=== PATIENT | male | born 1970 | race Caucasian/White ===

== ENCOUNTER 2016-05-19 11:09 | Inpatient (IN) ==
[2016-05-19] MEDS ORDERED: ZOFRAN IV ONE (11:55)
[2016-05-19] MEDS ORDERED: NS 1,000 ML IV ONE (11:55)
[2016-05-19] MEDS ORDERED: VANCOMYCIN 1 GM/NS 250 ML IV ONE ×2 (11:58→17:00)
[2016-05-19] MEDS ORDERED: ZOSYN 3.375 GM/NS 50 ML IV ONE (11:58)
--- NOTE | 2016-05-19 12:19 | PROVIDER DOCUMENTATION ---
HPI-Rash/Wound/ReCheck - General Source: patient, family - History of Present Illness-Dermatology Location: reports: torso (back) Quality: reports: painful Severity: reports: moderate Onset/Duration: reports: other (see hpi) Timing: reports: still present, constant, getting worse. denies: improving Context/Associated Symptoms: reports: abscess, edema. denies: fever Identifiable cause?: No Exposure: reports: unknown cause Similar Symptoms Previously?: Yes Recently seen or treated by another doctor?: Yes - General Chief Complaint: Abscess Stated Complaint: POSS ABSCESS Time Seen by Provider: 05/19/16 11:46 Allergies/Adverse Reactions: Allergies Allergy/AdvReac Type Severity Reaction Status Date / Time No Known Allergies Allergy Verified 05/19/16 13:10 Home Medications: Home Medication List Medication Instructions Recorded Confirmed Last Taken Type No Home Medications 05/19/16 05/19/16 Unknown History - History of Present Illness-Dermatology Nature of Presenting Problem: 45 year old WM presents with c/o of a wound to his left central back region. pt reports he developed starting with a pimple and getting worse. pt reports he was evaluated while traveling in [place] and told to use peroxide twice a day and change the dressing. pt reports it has been getting progressively larger over time with increased drainage. pt has been taking his fathers percocet and a friends cipro without improvement. reports associated nausea, denies fever/ chills/vomiting or diarrhea. (Oma Hua) Review of Systems - Adult - REVIEW OF SYSTEMS - ADULT Constitutional: reports: no symptoms reported. denies: chills, fever, fatique Eyes: reports: no symptoms reported. denies: discharge, blurred vision, double vision Ears, Nose, Mouth & Throat: reports: no symptoms reported. denies: ear discharge, ear pain, nose pain, loose teeth, throat pain, throat swelling Cardiovascular: reports: no symptoms reported. denies: chest pain, palpitations , syncope Respiratory: reports: no symptoms reported. denies: chronic cough, cough, shortness of breath, wheezing Gastrointestinal: reports: no symptoms reported. denies: abdominal pain, diarrhea, nausea, vomiting Genitourinary: reports: no symptoms reported. denies: dysuria, hematuria, urgency Musculoskeletal: reports: see HPI, back pain. denies: bone pain, joint pain, joint swelling, neck pain Integumentary: reports: see HPI, skin sores/ulcer. denies: hives, hair loss, itching, mole changes, nail changes, rash, skin thickening Neurological: reports: no symptoms reported. denies: ataxia, dizziness/vertigo , headache/migraines, numbness, paresthesia Psychiatric: reports: no symptoms reported Endocrine: reports: no symptoms reported Hematologic/Lymphatic: reports: no symptoms reported Allergic/Immunologic: reports: no symptoms reported All Other Systems: Reviewed and Negative Past History - Adult - PAST MEDICAL HISTORY-ADULT Review of Records: reports: Old Records Reviewed, Nursing Assessment Review, Medications Reviewed, Social history reviewed & non-contributory. Major Childhood Illnesses: reports: denies history Cardiovascular: reports: denies history Respiratory: reports: denies history Gastrointestinal: reports: denies history Obstetrical/Gynecological: reports: denies history Genitourinary: reports: denies history Musculoskeletal: reports: denies history Neurological: reports: denies history Endocrine/Immune: reports: denies history Other Conditions: reports: denies history - FAMILY HISTORY Family History: reviewed, not pertinent - SOCIAL HISTORY Smoking: denies, non-smoker Substance Use: none/never Alcohol Use Frequency: never Physical Exam-General - PHYSICAL EXAM-ADULT Initial Vital Signs Reviewed: Yes - CONSTITUTIONAL General Appearance: appears well, alert, no apparent distress. negative: mild distress, moderate distress, severe distress, lethargic, slow to respond, obtunded, combative - EYES Eyes: pink conjunctivae. negative: conjuctival exudate, pale conjunctivae, photophobia, sclera injected, scleral icterus, subconjunctival hemorrhage - HEAD, EARS, NOSE, MOUTH & THROAT HENMT: normocephalic/atraumatic, moist mucous membranes, normal ENT inspection - NECK Neck: non-tender, full range of motion, supple, normal inspection. negative: C- spine tenderness, limited range of motion, tender lateral, tender midline - RESPIRATORY Respiratory: chest non-tender, lungs clear, normal breath sounds, no pleuratic chest pain, no respiratory distress, no accessory muscle use. negative: respiratory distress, decreased breath sounds, accessory muscle use, crackles, rales, rhonchi, stridor, wheezing - CARDIOVASCULAR Cardiovascular: normal peripheral pulses, regular rate, rhythm, no edema, no gallop, no JVD, no murmur - CHEST (BREASTS) Chest/Breast: deferred. negative: tenderness - GASTROINTESTINAL (ABDOMEN) Abdominal Exam: normal bowel sounds, non tender, soft - GENITOURINARY Male Genitalia: deferred Rectal Exam: deferred Hemoccult Exam: deferred - LYMPHATIC Lymphatic: no adenopathy. negative: cervical node tenderness, enlargement, striations, streaking - MUSCULOSKELETAL Back Exam: no CVA tenderness, no vertebral tenderness, swelling (12cm by 12cm abscess with green/yellow purulent drainage, surrounding erythema/tenderness). negative: normal inspection, CVA tenderness, decreased range of motion, ecchymosis, kyphosis, lordosis, muscle spasm, scoliosis, vertebral tenderness Extremity: normal range of motion, non-tender, normal gait, normal inspection, no pedal edema, no calf tenderness, normal capillary refill. negative: deformity, erythema, slow capillary refill, swelling Peripheral Pulses: radial (R): 3+, radial (L): 3+, dorsalis-pedis (R): 3+, dorsalis-pedis (L): 3+ - SKIN Integumentary: erythema (see back exam), swelling, tenderness - NEUROLOGIC Neurologic: grossly normal, no motor/sensory deficits - PSYCHIATRIC Psych/Mental Status: normal mood/affect, normal thought content, normal thought process, oriented x 3 Progress - CONSULTS/PCP/HOSPITALIST Notification #1 *Consult/PCP/Hospitalist*: Dr. Leonardo Cornejo Time Discussed: 14:13 Consult Disposition: other (discussed/reviewed case with Dr. Patterson and he would like general) #2 Consult: Dr. Taylor Time Discussed: 14:18 Consult Disposition: Will see in ED (and evaluate for admission vs consult.) - PLAN OF CARE/RESULTS Progress/Plan/Lab Results: Note - Pt interviewed and examined by me. He has a large draining abscess on the upper thoracic area at the midline. He also has a 2/6 systolic murmur. Agree with admission and likely echo to r/o endocarditis. (Gerson Ugalde) Laboratory Tests 05/19/16 05/19/16 05/19/16 12:23 12:23 12:23 WBC 18.10 H RBC 4.76 Hgb 14.5 Hct 42.8 MCV 89.9 MCH 30.5 MCHC 33.9 RDW Std Deviation 13.2 Plt Count 405 H MPV 10.3 Immature Gran % (Auto) 1.9 H Neut % (Auto) 76.2 H Lymph % (Auto) 10.7 L [place] % (Auto) 9.2 Eos % (Auto) 1.5 Baso % (Auto) 0.5 Immature Gran # (Auto) 0.34 H Neut # (Auto) 13.79 H Lymph # (Auto) 1.94 [place] # (Auto) 1.67 H Eos # (Auto) 0.27 Baso # (Auto) 0.09 Segmented Neutrophils 78 H Band Neutrophils 4 H Lymphocytes 12 L Monocytes 4 Atypical Lymphocytes 2.0 Large Platelets OCCASIONAL Polychromasia OCCASIONAL Sodium 140 Potassium 3.9 Chloride 98 Carbon Dioxide 27 Anion Gap 15 BUN 7 L Creatinine 0.8 Estimated GFR/1.73 m2 > 60 BUN/Creatinine Ratio 9 Glucose 104 Calculated Osmolality 278 Calcium 9.0 Total Bilirubin 0.58 AST 37 H ALT 68 H Alkaline Phosphatase 142 H Total Protein 7.5 Albumin 3.3 L Globulin 4.2 Albumin/Globulin Ratio 0.8 Plasma Lactate 2.0 Urine Source Urine Color Urine Turbidity Urine pH Ur Specific [place] Urine Protein Ur Glucose (Stick) Ur Ketones (Stick) Urine Blood Urine Nitrite Urine Bilirubin Urobilinogen Dipstick Urine Leukocytes Urine WBC (Auto) Urine RBC (Auto) U Epithel Cells (Auto) Urine Bacteria (Auto) 05/19/16 12:50 WBC RBC Hgb Hct MCV MCH MCHC RDW Std Deviation Plt Count MPV Immature Gran % (Auto) Neut % (Auto) Lymph % (Auto) [place] % (Auto) Eos % (Auto) Baso % (Auto) Immature Gran # (Auto) Neut # (Auto) Lymph # (Auto) [place] # (Auto) Eos # (Auto) Baso # (Auto) Segmented Neutrophils Band Neutrophils Lymphocytes Monocytes Atypical Lymphocytes Large Platelets Polychromasia Sodium Potassium Chloride Carbon Dioxide Anion Gap BUN Creatinine Estimated GFR/1.73 m2 BUN/Creatinine Ratio Glucose Calculated Osmolality Calcium Total Bilirubin AST ALT Alkaline Phosphatase Total Protein Albumin Globulin Albumin/Globulin Ratio Plasma Lactate Urine Source CLEAN CATCH Urine Color YELLOW Urine Turbidity CLEAR Urine pH 6.0 Ur Specific [place] 1.028 Urine Protein 30 A Ur Glucose (Stick) NEGATIVE Ur Ketones (Stick) 10 A Urine Blood TRACE A Urine Nitrite NEGATIVE Urine Bilirubin SMALL A Urobilinogen Dipstick 4 A Urine Leukocytes NEGATIVE Urine WBC (Auto) <10 Urine RBC (Auto) <10 U Epithel Cells (Auto) <10 Urine Bacteria (Auto) NEGATIVE Orders Category Date Time Status Saline Loc NOW Care 05/19/16 11:54 Active CHEST-2 VIEWS [RAD] Stat Exams 05/19/16 11:54 Completed BLOOD CULTURE [BLDCUL] Stat Lab 05/19/16 12:38 Received CBC WITH DIFF [HEME] Stat Lab 05/19/16 12:23 Completed COMPREHENSIVE METABOLIC PANEL [CHEM] Stat Lab 05/19/16 12:23 Completed LACTATE, PLASMA [CHEM] Stat Lab 05/19/16 12:23 Completed ROUTINE CULTURE [RM] Routine Lab 05/19/16 13:09 Ordered UA NIMS W/REFLEX CULT [URINALYSIS] Stat Lab 05/19/16 12:50 Completed 0.9% Sodium Chloride Inj [Ns] 1,000 ml Med 05/19/16 11:55 Discontinued IV 999 mls/hr Ondansetron [Zofran] Med 05/19/16 11:55 Discontinued 4 mg IV NOW ONE Piperacil/Tazobact 3.375 gm/Ns [Zosyn 3.375 gm/Ns] 50 Med 05/19/16 11:58 Discontinued ml IV NOW Vancomycin 1 gm/Ns 250 ml Med 05/19/16 11:58 Discontinued IV NOW EKG [EKG] Stat Ther 05/19/16 11:55 Ordered Vital Signs - 24 hr 05/19/16 11:18 Temperature 98.3 F Pulse Rate 93 H Respiratory 20 Rate Blood Pressure 159/75 O2 Sat by Pulse 100 Oximetry Review[address] labs with Dr. Ugalde who came to the bedside for evaluation. (Oma Hua) Departure - Departure Time of Disposition Order: 14:18 Certified Medical Emergency: Emergent - Departure DIAGNOSIS: Abscess Disposition: ADMITTED INPATIENT 09 Condition: Stable Referrals: None,PCP [Primary Care Provider] - Attestation - Physician/ JUSTIN Attestation Patient care was provided by Advanced Practice Provider:: Yes Advanced Practice Provider:: Oma Hua Advanced Practice Provider documentation review:: The Mid-level provider documentation, treatment plan and medical decision making was reviewed by the physician who agrees with all treatment and medical decision making by the MLP. The physician spent face to face time with patient:: Yes (@[id number]) Physician Attestation
--- NOTE | 2016-05-19 12:29 | Diag Imaging Result Document ---
PROCEDURE NAME: CHEST-2 VIEWS - 05/19/2016 TWO VIEWS OF THE CHEST: FINDINGS: There are scattered granulomata present bilaterally. There is no evidence of acute cardiac or pulmonary disease. No previous studies are available for comparison. IMPRESSION: No acute disease.
[2016-05-19 13:13] LABS: URINE CULTURE NEEDED? NO; URINE MICRO REVIEW NEEDED? NO; URINE SOURCE CLEAN CATCH
[2016-05-19 13:14] LABS: AGAP 15; ALBUMIN 3.3 g/dL (3.5-5.0); ALKALINE PHOSPHATASE 142 U/L (32-122); BUN 7 mg/dL (8-22); CHLORIDE 98 mmol/L (98-107); COSMO 278; GOT 37 U/L (10-34); GPT 68 U/L (10-44); POTASSIUM 3.9 mmol/L (3.5-5.1); SODIUM 140 mmol/L (136-145); TCO2 27 mmol/L (25-35); TOTAL BILIRUBIN 0.58 mg/dL (0.20-1.00); TOTAL PROTEIN 7.5 g/dL (6.3-8.3)
[2016-05-19 13:26] LABS: BILIRUBIN URINE SMALL (NEGATIVE); BLOOD URINE TRACE (NEGATIVE); COLOR YELLOW; GLUCOSE URINE NEGATIVE (NEGATIVE); LEUKOCYTES URINE NEGATIVE (NEGATIVE); NITRITE URINE NEGATIVE (NEGATIVE); PROTEIN URINE 30 mg/dL (NEGATIVE); SP GRAVITY URINE 1.028; TURBIDITY URINE CLEAR (CLEAR); UR EPITHELIAL CELLS <10 /HPF (<10); URINE BACTERIA NEGATIVE /HPF; URINE RBC <10 /HPF (<10); URINE WBC <10 /HPF (<10); UROBILINOGEN URINE 4 mg/dL (NORMAL)
--- NOTE | 2016-05-19 13:39 | ED EKG INTERP ---
EKG Interpretation - EKG Time of EKG reading by physician:: 12:22 EKG Read and Signed by:: Gerson Ugalde EKG Interpretation (*Must complete 3 of following elements*): Abnormal Rate: 90 Rhythm: NSR [place]: normal QRS: RBB MS Interval: normal ST Wave: non-specific ST changes Attestation - Scribe Verification/Attestation Scribe:: Kiran Scott Acting as Scribe for:: Gerson Ugalde Scribe documention review:: This chart was documented by a scribe and accurately reflects the service the provider performed and the decisions made by the provider. Physician Attestation - Physician Attestation I, the provider, attest to the following statement:: Gerson Ugalde Physician documentation Attestation:: This documentation recorded by the scribe accurately reflects the service I personally performed and the decisions made by me.
[2016-05-19 13:58] LABS: BASO% 0.5 % (0.0-0.8); EOS# 0.27 X1000 (0.0-0.7); EOS% 1.5 % (0.0-10.0); HEMATOCRIT 42.8 % (42.0-52.0); HEMOGLOBIN 14.5 g/dL (14.0-18.0); IMM GRAN# 0.34 X1000 (0.0-0.04); IMM GRAN% 1.9 % (0.0-0.5); LYMPH# 1.94 X1000 (1.2-3.4); LYMPH% 10.7 % (20.5-51.1); MANUAL DIFF NEEDED? YES; MCH 30.5 PG (27-31); MCHC 33.9 g/dL (33-37); MCV 89.9 FL (81-99); MONO# 1.67 X1000 (0.11-0.59); MONO% 9.2 % (1.7-9.3); MPV 10.3 FL (7.4-10.4); NEUT% 76.2 % (42.2-75.2); PLT 405 X1000 (130-400); RBC 4.76 XMIL (4.7-6.1)
[2016-05-19 14:02] LABS: BANDS 4 % (0-1); LARGE PLATELETS OCCASIONAL; LYMPHS 12 % (21-51); MONO 4 % (1-9)
[2016-05-19 14:03] LABS: POLYCHROM OCCASIONAL
[2016-05-19] MEDS ORDERED: VANCOMYCIN IV PER PHARMACY MISC SCH (16:00)
--- NOTE | 2016-05-19 16:21 | HISTORY AND PHYSICAL ---
ADMITTING DIAGNOSIS: Back abscess. HISTORY OF PRESENT ILLNESS: This is a 45-year-old male presenting with a wound to his central back region that started a week ago. It started as a pimple and has progressively been getting worse. He was evaluated while in [place] and told to put peroxide on the wound twice a day and change the dressing. It had potentially been increasing in size and it started draining the last couple of days, foul drainage. He was seen in the emergency department, had the area cultured, and started on antibiotics. I was asked to evaluate the area given the large size. PAST MEDICAL HISTORY: None. PAST SURGICAL HISTORY: None reported. SOCIAL HISTORY: Denies alcohol tobacco or illicit drugs. FAMILY HISTORY: Reviewed with the patient but noncontributory. HOME MEDICATIONS: None. ALLERGIES: None. REVIEW OF SYSTEMS: A full 10 point review of systems obtained. Negative except as specified in HPI. PHYSICAL EXAMINATION: VITAL SIGNS: Patient is currently afebrile, temperature 98.3 degrees, pulse is 93, respiratory rate 20 and nonlabored, blood pressure 159/75, O2 saturation 100% on room air. GENERAL: No acute distress. Alert, interactive, male, looks stated age. HEENT: Normocephalic, atraumatic. Pupils equal, round, reactive to light. Mucous membranes moist. Oropharynx benign. NECK: Supple. Trachea midline. CARDIOVASCULAR: Regular rate and rhythm. LUNGS: Grossly clear. ABDOMEN: Soft, nontender, nondistended. EXTREMITIES: Moves all extremities well. SKIN: Large area of erythema and induration noted to the back. The central part between the shoulder blades there is an area necrotic tissue and slough consistent with an abscess. This areas is exquisitely tender to palpation. It essentially extends over the majority of the upper aspect of his back. EXTREMITIES: Moves all extremities. NEUROLOGIC: Grossly intact. VASCULAR: All extremities perfused. LABORATORY: White blood cell count 18.1, hematocrit is 42, and platelet count 405,000. BMP reviewed. Microbiology from the wound is still pending. ASSESSMENT AND PLAN: A 45-year-old male with a large back abscess. Large back abscess. At this time the patient has been started on antibiotics and had the wound cultured. He will need debridement in the operating room. Discussed with the patient. We will schedule. All risks, benefits, and alternatives were discussed. He voiced understanding.
[2016-05-19] MEDS ORDERED: VERSED ONE (18:12)
[2016-05-19] MEDS ORDERED: CLAVE SECONDARY SET 11953 ONE (18:13)
[2016-05-19] MEDS: ZOSYN 3.375 GM/NS 50 ML IV SCH (18:30)
[2016-05-19] MEDS: DILAUDID ONE ×8 (19:08→19:48)
[2016-05-19] MEDS ORDERED: DIPRIVAN 1% ONE (19:19)
[2016-05-19] MEDS ORDERED: FENTANYL ONE (19:19)
--- NOTE | 2016-05-19 19:22 | OPERATIVE NOTE ---
PROCEDURE DATE: 05/19/2016 PREOPERATIVE DIAGNOSIS: Necrotizing soft tissue infection of the back. POSTOPERATIVE DIAGNOSIS: Necrotizing soft tissue infection of the back. PROCEDURE: 1. Incision and drainage with debridement of necrotizing soft tissue infection with skin, subcutaneous tissue, measuring 100 square cm. 2. Placement of a negative pressure wound dressing. SURGEON: Jona Taylor MD. [facility] [facility]: None. ANESTHESIA: General endotracheal. INTRAOPERATIVE FINDINGS: Area of the abscess and infection measured 10 cm x 10 cm x 1 cm. COMPLICATIONS: None at time of this dictation. ESTIMATED BLOOD LOSS: 50 mL. SPECIMENS REMOVED: Tissue. BRIEF HISTORY: The patient is a 45-year-old male presenting with a necrotizing soft tissue infection to his back. He was started on antibiotics and cultured in the ER. It was felt the patient would benefit from debridement and drainage in the operating room. The risks, benefits, and alternatives were discussed. He voiced understanding and wished to proceed with procedure. DESCRIPTION OF PROCEDURE: After informed consent was obtained, patient brought to the operative theatre, placed on the operative table, placed supine position. General endotracheal anesthesia was then performed without complication. The patient was transitioned to prone. After a formal time-out we prepped and draped the area in a sterile fashion. After the time-out, we made an incision through the necrotic tissue. I debrided back everything sharply to healthy tissue. The area once debrided went down to muscle. There were multiple tracking cavities noted which we bluntly dissected and encountered purulence which we drained and irrigated thoroughly. The total area after debridement and the undermining was 10 cm x 10 cm x 1 cm deep. Given this wound size we elected to place a negative pressure wound dressing. We did this with a black sponge in a standard fashion, connected to suction with good results. The patient tolerated the procedure well and was transferred to the recovery room stable condition. Postoperatively, we will keep the patient on a wound VAC and on antibiotics and continue local wound care.
[2016-05-19] MEDS ORDERED: NS 1,000 ML ONE (19:25)
[2016-05-19] MEDS ORDERED: NORCO-10 PO PRN (20:09)
[2016-05-19] MEDS: NORCO-10 PO PRN (20:33)
[2016-05-19] MEDS: PERIDEX MT SCH (20:34)
[2016-05-19] MEDS ORDERED: NS 1,000 ML IV SCH (21:00)
[2016-05-20] MEDS: NORCO-10 PO PRN ×6 (00:32→21:40)
[2016-05-20] MEDS: ZOSYN 3.375 GM/NS 50 ML IV SCH ×4 (00:32→23:25)
[2016-05-20] MEDS: NS 1,000 ML IV SCH ×4 (00:32→23:27)
--- NOTE | 2016-05-20 05:42 | EKG Report ---
Test Performed on : 05/19/2016 12:22:57 PM Test Reason : admission Blood Pressure : / mmHG Vent. Rate : 090 BPM Atrial Rate : 090 BPM P-R Int : 130 ms QRS Dur : 134 ms QT Int : 484 ms P-R-T Axes : 072 033 047 degrees QTc Int : 592 ms Normal sinus rhythm. Right bundle branch block T wave abnormality, consider inferior ischemia Abnormal ECG No previous ECGs available Unconfirmed Result
[2016-05-20] MEDS: VANCOMYCIN 2,000 MG in NS 500 ML IV SCH ×2 (05:47→16:56)
[2016-05-20 06:23] LABS: BASO% 0.2 % (0.0-0.8); EOS# 0.13 X1000 (0.0-0.7); EOS% 0.8 % (0.0-10.0); HEMOGLOBIN 12.7 g/dL (14.0-18.0); IMM GRAN# 0.14 X1000 (0.0-0.04); IMM GRAN% 0.8 % (0.0-0.5); LYMPH# 1.94 X1000 (1.2-3.4); LYMPH% 11.7 % (20.5-51.1); MANUAL DIFF NEEDED? YES; MCH 30.7 PG (27-31); MCHC 33.4 g/dL (33-37); MCV 91.8 FL (81-99); MONO# 0.79 X1000 (0.11-0.59); MONO% 4.8 % (1.7-9.3); MPV 10.2 FL (7.4-10.4); NEUT% 81.7 % (42.2-75.2); PLT 335 X1000 (130-400); RBC 4.14 XMIL (4.7-6.1)
--- NOTE | 2016-05-20 06:37 | PROGRESS NOTE ---
DATE: 05/20/2016 SUBJECTIVE: Patient doing well. Reports less pain. OBJECTIVE: Vital Signs: Patient is afebrile. His vital signs are stable. General: No acute distress. Skin: Wound VAC in place. Cardiovascular: Regular rate and rhythm. Lungs: Grossly clear. Abdomen: Soft, nontender, nondistended. LABORATORIES: Currently pending from this morning. Microbiology pending from the wound but positive gram-positive cocci in the blood. ASSESSMENT/PLAN: A 45-year-old male status post incision and drainage, debridement of back abscess with placement of negative pressure wound dressing now with bacteremia. 1. Wound to the back. At this time, we will continue wound vacuum-assisted closure. We will have Wound Care see the patient. We will recheck labs this morning. 2. Bacteremia. At this time, I have consulted with Dr. Cifuentes with Infectious Disease. Patient is on vancomycin and Zosyn. We will continue current therapy.
[2016-05-20 06:48] LABS: AGAP 9; BUN 7 mg/dL (8-22); CALCIUM 8.5 mg/dL (8.8-10.2); CHLORIDE 102 mmol/L (98-107); COSMO 276; SODIUM 138 mmol/L (136-145); TCO2 27 mmol/L (25-35)
[2016-05-20 07:13] LABS: BANDS 2 % (0-1); LYMPHS 12 % (21-51); MONO 4 % (1-9)
--- NOTE | 2016-05-20 08:05 | CONSULTATION ---
DATE OF CONSULTATION: 05/20/2016 HISTORY OF PRESENT ILLNESS: The patient is status post incision and drainage of a necrotizing back infection, which included abscesses. RECOMMENDATIONS: The patient has undergone incision and drainage of a necrotizing back infection with abscess formation. I would suggest continuing the current antibiotics pending culture results. LABORATORY AND X-RAY: The patient's CBC showed the white count went from 18, 000 to 16,550 this morning; hemoglobin is 12.7, platelet count is 335,000. Creatinine 0.8. GFR is greater than 60. One out of 2 blood cultures is growing gram-positive cocci. The cultures taken from the back wounds are still pending. DISCUSSION: The patient states that a couple weeks ago he started developing some pain and what he thought was a pimple in his back. The area became more and more painful and erythematous and indurated. The patient was then admitted to the hospital, and Dr. Taylor operated on the patient yesterday doing an incision and drainage of a necrotizing back wound infection and also had drainage of abscesses. I cannot really think of a comorbidity for this patient that he has that would predispose him to getting a back abscess, which has gotten quite large. REVIEW OF SYSTEMS: Eyes and Ears: The patient denies difficulty hearing or seeing. Neck: No stiffness. Respiratory: No cough or shortness of breath. Gastrointestinal: No nausea, vomiting, or diarrhea. Genitourinary: No dysuria or flank pain. Neurologic: The patient is alert. He can move his extremities. There is no tremor. PLAN: The plan will be to continue treating the Mr. Dumont' abscesses pending culture results. A VAC is in place. PHYSICAL EXAMINATION: Vital Signs: Temperature is 98 degrees, pulse 52, respirations 14, blood pressure 119/53. General: This is a fairly healthy-appearing, middle-aged male who is in no acute distress at this time. Lungs: Clear to auscultation. Cardiovascular: Regular heart rate. Head, Eyes, Ears, Nose, and Throat: He can hear my spoken words and see near objects. The patient does have some caries in his teeth. Overall, he has poor dental hygiene. Neck: No meningismus. Neurologic: The patient is awake. He can move his extremities. There is no tremor. His memory as regarding his medical history seemed to be intact. Back- VAC in place, no erythema or swelling. MEDICAL DISEASES: Negative for diabetes mellitus and hypertension. INFECTIOUS DISEASE HISTORY: Negative for pneumonia and UTI. NEUROLOGIC HISTORY: No seizures or syncopal episodes. ENDOCRINE HISTORY: No history of diabetes or thyroid disease. FAMILY HISTORY: Every time I asked the patient about a family member, he said there was no illness. He said he is not aware of any illness in his family. SOCIAL HISTORY: [place] He does not drink or smoke. 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 He is single. ALLERGIES: He does not have any drug allergies. MEDICATIONS: The does not take any medicine regularly or have any home medication. Thank you for the consultation. CARMEN
[2016-05-20] MEDS: PERIDEX MT SCH ×2 (09:04→20:33)
[2016-05-20] MEDS ORDERED: ANESTHESIA PB SET 88 IN 5742 ONE (10:11)
[2016-05-20] MEDS ORDERED: QUELICIN (DOSE) ONE (10:11)
[2016-05-20] MEDS ORDERED: XYLOCAINE-MPF 2% ONE (10:11)
[2016-05-20] MEDS ORDERED: LR 1,000 ML ONE (10:11)
[2016-05-20] MEDS ORDERED: EXTENSION SET 32 IN 4522 ONE (10:11)
[2016-05-20] MEDS ORDERED: ZOFRAN ONE (10:11)
[2016-05-20] MEDS ORDERED: DECADRON ONE (10:11)
[2016-05-21] MEDS: NORCO-10 PO PRN ×6 (01:53→20:25)
[2016-05-21] MEDS: ZOSYN 3.375 GM/NS 50 ML IV SCH ×4 (03:34→20:25)
[2016-05-21] MEDS: VANCOMYCIN 2,000 MG in NS 500 ML IV SCH ×2 (04:25→17:37)
[2016-05-21] MEDS: NS 1,000 ML IV SCH ×2 (05:42→14:10)
--- NOTE | 2016-05-21 06:10 | PROGRESS NOTE ---
DATE: 05/21/2016 SUBJECTIVE: Patient doing well. No major issues. He did have MRSA in his wound. He also still has gram positive cocci in his blood. OBJECTIVE: Vital Signs: Patient has been afebrile. His vital signs have been stable. General: No acute distress. Alert, interactive. Skin: Wound VAC in place on back. Cardiovascular: Regular rate and rhythm. Lungs: Grossly clear. Abdomen: Soft, nontender, nondistended. Extremities: Moves all extremities well. Neurologic: Grossly intact. Vascular: All extremities perfused. LABORATORY: White blood cell count from yesterday 16.5. New labs: New CBC ordered this morning. The remainder of his labs from yesterday were within normal limits. ASSESSMENT/PLAN: A 45-year-old male with likely Methicillin-resistant Staphylococcus aureus wound and associated bacteremia. 1. MRSA wound at this time. We will continue wound VAC. We will have wound care. Change the wound VAC at the bedside today and re-evaluate the wound. We will keep his wound VAC over the weekend and reassess on Tuesday after exchange today. My partner, Dr. Iyer, will cover over the weekend. 2. Bacteremia. At this time, likely the same species as the one in the wound. He is currently on vancomycin and Zosyn. Infectious disease is following. We will defer any changes to them as far as antibiotic duration.
--- NOTE | 2016-05-21 06:52 | PROGRESS NOTE ---
DATE: 05/21/2016 PRESENT ILLNESS: The patient is status post incision and drainage of a necrotizing back infection which included an abscess. Culture from the abscess grew methicillin-resistant Staphylococcus aureus. Blood cultures are negative. MEDICATIONS: The patient is on vancomycin and Zosyn. PHYSICAL EXAMINATION: Vital Signs: Temperature is 97.6, pulse 50, respirations 12, blood pressure 115/67. Generally, this is a fairly healthy-appearing, middle-aged male, who is in no acute distress. Lungs clear to auscultation. Cardiovascular: Heart rate is regular. Abdomen soft and nontender. Back: The upper back wound has a VAC on it. There is no surrounding erythema or swelling. LABORATORY DATA AND X-RAY: There is no new x-ray. The culture from the back grew methicillin-resistant Staphylococcus aureus. Blood cultures are negative. There is no new lab for today or new radiographic study. ASSESSMENT AND PLAN: The patient has methicillin-resistant Staphylococcus aureus back abscess along with phlegmon. I plan to continue vancomycin but discontinue Zosyn. The plan is to keep the patient over the weekend and send him home in the first of the week. From an Infectious Disease point of view, I think the patient can be sent home on oral antibiotics. Which antibiotic is to be chosen depends on how the patient's wound looks and also the susceptibilities of the organism. The patient's comorbidities include the following: The patient does not really have a comorbidity that I could find.
[2016-05-21] MEDS: PERIDEX MT SCH ×2 (08:46→20:25)
[2016-05-22] MEDS: NORCO-10 PO PRN ×6 (00:15→22:15)
[2016-05-22] MEDS: ZOSYN 3.375 GM/NS 50 ML IV SCH ×4 (04:06→22:15)
[2016-05-22] MEDS: NS 1,000 ML IV SCH ×2 (04:07→09:34)
[2016-05-22] MEDS: VANCOMYCIN 2,000 MG in NS 500 ML IV SCH ×2 (05:39→17:16)
[2016-05-22] MEDS: PERIDEX MT SCH ×2 (09:32→22:15)
--- NOTE | 2016-05-22 10:02 | PROGRESS NOTE ---
DATE: 05/22/2016 SUBJECTIVE: Arturo Dumont is a 45-year-old, white male, patient of Dr. Jona Taylor. He has developed a soft tissue infection of his back and has a wound VAC in place. He is receiving IV antibiotics, and overall he feels clinically he is improving. His heart rate is 67, blood pressure 115/82, O2 saturation 93%. He is voiding without difficulty. He is on IV vancomycin and Zosyn. He is eating a regular diet. He has been good about getting up and moving around. PLAN: We will stop any maintenance IV fluid. He will continue to get his IV antibiotics. His wound VAC is in place.
[2016-05-23] MEDS: NORCO-10 PO PRN ×6 (02:48→22:49)
[2016-05-23] MEDS: ZOSYN 3.375 GM/NS 50 ML IV SCH ×4 (02:49→21:25)
[2016-05-23] MEDS: VANCOMYCIN 2,000 MG in NS 500 ML IV SCH ×2 (06:31→18:29)
[2016-05-23] MEDS: PERIDEX MT SCH ×2 (09:41→21:25)
--- NOTE | 2016-05-23 11:17 | PROGRESS NOTE ---
DATE: 05/23/2016 Mr. Dumont is a 45-year-old white male who has an open wound involving his mid upper back that is being treated with a wound VAC. He is also on IV Zosyn and vancomycin per Dr. Taylor. His wound VAC is functioning well and otherwise he is eating a regular diet and has no other complaints. He is afebrile.
[2016-05-24] MEDS: NORCO-10 PO PRN ×4 (02:43→18:41)
[2016-05-24] MEDS: ZOSYN 3.375 GM/NS 50 ML IV SCH (03:00)
[2016-05-24] MEDS: VANCOMYCIN 2,000 MG in NS 500 ML IV SCH ×2 (04:59→16:17)
--- NOTE | 2016-05-24 06:43 | PROGRESS NOTE ---
DATE: 05/24/2016 PRESENT ILLNESS: The patient is status post incision and drainage of a necrotizing back abscess. Culture from the abscess grew methicillin-resistant Staphylococcus aureus. Patient also has 1 of 2 blood cultures positive for a viridans Streptococcus. MEDICATIONS: The patient is on vancomycin and Zosyn. PHYSICAL EXAMINATION: Vital Signs: Temperature is 98.3 degrees, pulse 56, respirations 20. Blood pressure 132/62. General: This is a fairly healthy-appearing, middle-aged male. He is in no acute distress. Lungs: Clear to auscultation. Cardiovascular: Regular heart rate. Abdomen: Soft and nontender. Back: The patient has a VAC in place. The site is not swollen or red. LAB AND X-RAY: A CBC and BMP are pending. I have also ordered 2 blood cultures today. There is no new x-ray today. ASSESSMENT AND PLAN: I plan to continue vancomycin and have discontinued Zosyn. Whether the patient's blood culture is positive and meaning that the patient has bacteremia or if it is a contaminant is hard for me to say. I think the safest thing would be to assume that it is a true bacteremia and treat it with an intravenous antibiotic for 2 weeks. The vancomycin that the patient already is on should cover the viridans Streptococcus as well as the methicillin-resistant Staphylococcus aureus abscess from the back. Therefore, I have also repeated the blood cultures. If they are sterile, I will put in a peripherally inserted central catheter. I put in a consult for [facility] to supply the patient with 2 weeks of intravenous home vancomycin. I will see the patient back then in my office after the antibiotics are completed at which time I will examine the patient. If everything looks good, I will stop the antibiotics and remove the patient's peripherally inserted central catheter. Dr. Taylor is managing the patient's wound on his back and he will order what kind of dressing or continue with the VAC. The patient does not have a comorbidity that I could establish which predisposed him to get this infection.
[2016-05-24 07:12] LABS: BASO% 0.3 % (0.0-0.8); EOS# 0.31 X1000 (0.0-0.7); EOS% 2.7 % (0.0-10.0); HEMATOCRIT 38.8 % (42.0-52.0); HEMOGLOBIN 12.8 g/dL (14.0-18.0); LYMPH% 20.9 % (20.5-51.1); MANUAL DIFF NEEDED? NO; MCH 30.3 PG (27-31); MCV 91.9 FL (81-99); MONO# 1.05 X1000 (0.11-0.59); MONO% 9.1 % (1.7-9.3); MPV 9.9 FL (7.4-10.4); PLT 335 X1000 (130-400); RBC 4.22 XMIL (4.7-6.1)
[2016-05-24] MEDS: PERIDEX MT SCH ×2 (09:32→22:17)
--- NOTE | 2016-05-24 10:02 | PROGRESS NOTE ---
DATE: 05/24/2016 SUBJECTIVE: The patient is doing well. No major issues. Wound VAC was changed on Tuesday, still working. OBJECTIVE: Vital signs: The patient is currently afebrile. His vital signs are stable. General: No acute distress. Skin: Wound VAC in place. Cardiovascular: Regular rate and rhythm. Lungs: Grossly clear. Abdomen: Soft, nontender and nondistended. DIAGNOSTIC DATA: The patient does have on microbiology Staphylococcus aureus on the wound and Streptococcus intermedius in the blood. ASSESSMENT AND PLAN: This is a 45-year-old male status post incision and drainage of back abscess with negative pressure wound dressing. At this time, the patient does have Streptococcus intermedius in his blood and Staphylococcus aureus in his wound. At this time, he is on antibiotics. We will defer to Infectious Disease about duration of antibiotics on him. We will have Wound Care change his dressing today and potentially go home soon.
--- NOTE | 2016-05-24 16:06 | PROGRESS NOTE ---
DATE: 05/24/2016 There has been a slight change in the patient's antimicrobial therapy. Instead of doing the vancomycin at home, the patient will be given daptomycin 500 mg IV daily at the Outpatient Clinic for 2 weeks. I have also ordered that the following labs be done: CBC, creatinine, and CPK to be drawn every Tuesday for 2 weeks.
[2016-05-25] MEDS: NORCO-10 PO PRN ×5 (01:32→20:18)
[2016-05-25] MEDS: VANCOMYCIN 2,000 MG in NS 500 ML IV SCH (05:02)
--- NOTE | 2016-05-25 08:02 | PROGRESS NOTE ---
DATE: 05/25/2016 PRESENT ILLNESS: The patient is status post incision and drainage of a necrotizing back abscess from which methicillin-resistant Staph aureus was cultured. The patient also had 1 of 2 blood cultures positive for a viridans Streptococcus. MEDICATIONS: The patient is on vancomycin as a single agent. PHYSICAL EXAMINATION: Vital Signs: Temperature is 99.2, pulse 64, respirations 20, blood pressure 136/64. General: This is a fairly, healthy-appearing, middle-aged male who is in no acute distress. Back: The patient has a dressing over the back wound. The dressing is intact. There is no visible surrounding erythema. Lungs: Clear to auscultation. Cardiovascular: Regular heart rate. Abdomen: Soft and nontender. LABORATORY AND X-RAY: CBC showed a white count of 11,510, hemoglobin 12.8 and platelet count 335,000. Creatinine is 1.0. GFR is greater than 60. ASSESSMENT AND PLAN: The patient has a strep bacteremia and methicillin-resistant Staph aureus abscess. When he leaves the hospital, he will be coming to the outpatient clinic for a 2 week treatment course with daptomycin given daily. I plan to see the patient back in my office in 2 weeks. Hopefully, by then, we can stop his antibiotic and remove his PICC. The patient had blood cultures drawn yesterday and we do not have the results back. If the blood cultures are sterile, then a PICC can be put in and the patient can go home. The patient did not have a comorbidity that I could detect.
--- NOTE | 2016-05-25 08:03 | PROGRESS NOTE ---
DATE: 05/25/2016 SUBJECTIVE: The patient is doing well. His wound VAC was removed and a Vashe wet-to-dry dressing was placed. OBJECTIVE: Vital Signs: Patient is currently afebrile. His vital signs are stable. General: No acute distress. Skin: Wet-to-dry dressing in place. Overall wound is healing. Cardiovascular: Regular rate and rhythm. Lungs: Grossly clear. Abdomen: Soft, nontender, nondistended. ASSESSMENT AND PLAN: A 45-year-old male status post incision and drainage of back abscess. Status post incision and drainage. At this time the patient has had arrangements made for potential home daptomycin. Will likely be able to discharge the patient home. He will need daily dressing changes with Vashe. He has been instructed on how to do this. Once all arrangements have been made, we will discharge the patient today.
[2016-05-25] MEDS: PERIDEX MT SCH ×2 (08:25→20:18)
[2016-05-26] MEDS: VANCOMYCIN 1,750 MG in NS 250 ML IV SCH ×2 (00:02→13:00)
[2016-05-26] MEDS: NORCO-10 PO PRN ×4 (00:05→15:48)
[2016-05-26] MEDS ORDERED: XANAX PO ONE (05:52)
--- NOTE | 2016-05-26 06:12 | PROGRESS NOTE ---
DATE: 05/26/2016 SUBJECTIVE: Patient doing well. No major issues. OBJECTIVE: Vital Signs: Patient is currently afebrile. His vital signs are stable. General: No acute distress. Skin: Wet-to-dry dressing in place on back. Cardiovascular: Regular rate and rhythm. Lungs: Grossly clear. Abdomen: Soft, nontender, nondistended. ASSESSMENT AND PLAN: A 45-year-old male status post incision and drainage of back abscess. Status post incision and drainage. At this time, awaiting peripherally inserted central catheter line placement for home daptomycin. Patient can be discharged once this is arranged. We will continue dressing changes with Jose.
--- NOTE | 2016-05-26 07:49 | PROGRESS NOTE ---
DATE: 05/26/2016 PRESENT ILLNESS: The patient has a Staphylococcus epidermidis back abscess which has been incised, drained, and debrided by Dr. Taylor. He also has a positive blood culture for streptococcus. MEDICATIONS: The patient is receiving vancomycin. The level today of vancomycin was elevated so antibiotics are going to be held by pharmacy. Also, I have ordered a creatinine. When the patient is discharged, he will be placed on daptomycin. PHYSICAL EXAMINATION: Vital Signs: Temperature is 97.5 degrees, pulse 63, respirations 12, blood pressure 121/59. General: This is a fairly healthy-appearing, middle-aged male who is in no acute distress. Back: The patient's wound has no erythema. It was packed. I did not see any purulence and there was no odor to the wound. Lungs: Clear to auscultation. Cardiovascular: Regular heart rate. Abdomen: Soft and nontender. LAB AND X-RAY: The patient's vancomycin level was 24.5 today. There is no other lab and there is no radiographic study today either. ASSESSMENT AND PLAN: As mentioned above, we are holding vancomycin because of the high level and I have ordered a creatinine. When the patient goes to the outpatient clinic to get his daily dose of daptomycin, I have also requested that at the outpatient clinic the patient' s back dressing changed using Vashe as a wet-to-dry dressing. I will be seeing the patient in my office in 2 weeks. I could not find a comorbidity that would have predisposed the patient to develop an abscess in his back. MTDD
[2016-05-26] MEDS: PERIDEX MT SCH (08:43)
[2016-05-26 11:56] VITALS: BP 113/61
[2016-05-26] MEDS ORDERED: NS 250 ML ONE (13:43)
[2016-05-26 15:52] LABS: INR 1.06; PROTIME 10.8 Seconds (9.2-11.7)
== END 2016-05-26 16:19 | disposition home or self-care (01) | DRG 571 ==
LOC: ED 11:09 → OR 18:11 → 4N 19:30
PROVIDERS: ADMIT Surgery; ATTEND Surgery
PROC: 0JB70ZZ Excision of Back Subcutaneous Tissue and Fascia, Open Approach (ICD-10-PCS; principal; 2016-05-19 18:15)
PROC: 02HV33Z Insertion of Infusion Device into Superior Vena Cava, Percutaneous Approach (ICD-10-PCS; 2016-05-26)
DX: L02.212 Cutaneous abscess of back [any part, except buttock and flank] (principal); R78.81 Bacteremia; K02.9 Dental caries, unspecified; B95.62 Methicillin resistant Staphylococcus aureus infection as the cause of diseases classified elsewhere
CPT/HCPCS: 36569; 71020; 80048; 80053; 80202; 81001; 82565; 83605; 85025; 85610; 87040; 87070; 87077; 87186; 88304; 93005; 94761; 94799; 96365; 96366; 96367; 96375; J0330; J1100; J1170; J2250; J2405; J2543; J3010; J3370; J7030; J7040; J7050; J7120

== ENCOUNTER → 2016-06-11 | Day surgery (SDC) | END | disposition home or self-care (01) | LOC: INF 10:56 | PROVIDERS: ATTEND Internal Medicine | DX: Z45.2 Encounter for adjustment and management of vascular access device (principal) ==